=== PATIENT | male | born 1955 | race Caucasian/White ===

== ENCOUNTER 2018-03-20 17:23 | Inpatient (IN) | payer OTHER ==
[~2018-03-20] VITALS: Ht 185.4 cm; Wt 82.8 kg
[2018-03-20 18:04] LABS: BASOPHILS # (AUTO) 0.03 x10^3/uL (0-0.1); BASOPHILS % (AUTO) 1 % (0-1); EOSINOPHILS # (AUTO) 0.15 x10^3/uL (0-0.4); EOSINOPHILS % (AUTO) 3 % (1-7); LYMPHOCYTES # (AUTO) 1.89 x10^3/uL (1-3.4); LYMPHOCYTES % (AUTO) 33 % (22-44); MD NO; MEAN CORPUSCULAR HEMOGLOBIN 28.1 pg (27.5-34.5); MEAN CORPUSCULAR HGB CONC 32.9 g/dL (33.2-36.2); MEAN CORPUSCULAR VOLUME 85.5 fL (81-97); MEAN PLATELET VOLUME 8.7 fL (7.4-10.4); MONOCYTES # (AUTO) 0.73 x10^3/uL (0.2-0.8); MONOCYTES % (AUTO) 13 % (2-9); NEUTROPHILS # (AUTO) 2.95 x10^3/uL (1.8-6.8); NEUTROPHILS % (AUTO) 51 % (42-75); PLATELET COUNT 230 x10^3/uL (130-400); RED BLOOD COUNT 4.89 x10^6/uL (4.38-5.82); RED CELL DISTRIBUTION WIDTH 14.1 % (9.4-14.8)
[2018-03-20 18:15] LABS: ALANINE AMINOTRANSFERASE 26 U/L (12-78); ALBUMIN 3.3 g/dL (3.4-5.0); ANION GAP 6 mmol/L (5-15); CALCIUM 8.9 mg/dL (8.5-10.1); CHLORIDE 108 mmol/L (98-107); CREATININE 1.14 mg/dL (0.7-1.3)
[2018-03-20 18:18] LABS: ALKALINE PHOSPHATASE 49 U/L (45-117); BILIRUBIN,TOTAL 0.4 mg/dL (0.2-1.0); TOTAL PROTEIN 6.9 g/dL (6.4-8.2); TROPONIN I < 0.015 ng/mL (0.000-0.045)
[2018-03-20 19:22] LABS: MICROSCOPIC NOT IND
[2018-03-20 19:28] LABS: CULTURE INDICATED? NO
[2018-03-20] MEDS ORDERED: ONDANSETRON ODT 4 MG ONE (19:40)
[2018-03-20] MEDS ORDERED: MORPHINE SULFATE 4 MG/ML, 1ML ONE (19:41)
[2018-03-20] MEDS ORDERED: OMNIPAQUE 350 MG/ML, 100ML BOTTLE ONE (20:00)
[2018-03-20] MEDS ORDERED: HYDROmorphone 2 MG/ML, 1ML IVPush PRN (20:30)
[2018-03-20] MEDS ORDERED: MORPHINE SULFATE 4 MG/ML, 1ML IVPush PRN (20:30)
[2018-03-20] MEDS ORDERED: ONDANSETRON ODT 4 MG PO ONE (20:30)
[2018-03-20] MEDS ORDERED: SODIUM CHLORIDE 0.9% 1,000 ML IV ONE (20:30)
[2018-03-20 21:28] LABS: HEMOGLOBIN A1C 5.4 % (4.2-6.3)
[2018-03-20] MEDS ORDERED: ONDANSETRON ODT 4 MG PO PRN (21:30)
[2018-03-20] MEDS ORDERED: LABETALOL 5MG/ML, 20ML IVPush PRN (21:30)
[2018-03-20] MEDS ORDERED: ONDANSETRON 2MG/ML, 2ML IVPush PRN (21:30)
[2018-03-20] MEDS ORDERED: ACETAMINOPHEN 325 MG TABLET PO PRN (21:30)
[2018-03-20] MEDS ORDERED: PROMETHAZINE 25 MG/ML, 1ML IM PRN (21:30)
[2018-03-20] MEDS ORDERED: morphine SULFATE 10 MG/ML, 1ML IVPush PRN (21:30)
[2018-03-20] MEDS ORDERED: hydrALAzine 20 MG/ML, 1ML IVPush PRN (21:30)
[2018-03-20 21:31] LABS: FREE T4 (FREE THYROXINE) 0.96 ng/dL (0.76-1.46); THYROID STIMULATING HORMONE 3.23 mIU/L (0.358-3.740)
[2018-03-20 22:27] VITALS: BP 122/80
[2018-03-20] MEDS: OXYcodone IR 5MG TABLET PO PRN (23:24)
[2018-03-20] MEDS: TEMAZEPAM 15 MG CAPSULE PO PRN (23:24)
[2018-03-20] MEDS: D5%-0.9% NACL+KCL 20MEQ 1,000 ML IV SCH (23:25)
[2018-03-21 02:31] VITALS: BP 115/75
[2018-03-21 06:11] LABS: CHLORIDE 113 mmol/L (98-107)
[2018-03-21 06:15] LABS: BASOPHILS # (AUTO) 0.03 x10^3/uL (0-0.1); BASOPHILS % (AUTO) 1 % (0-1); EOSINOPHILS # (AUTO) 0.18 x10^3/uL (0-0.4); EOSINOPHILS % (AUTO) 4 % (1-7); LYMPHOCYTES # (AUTO) 2.02 x10^3/uL (1-3.4); LYMPHOCYTES % (AUTO) 45 % (22-44); MD NO; MEAN CORPUSCULAR HEMOGLOBIN 28.1 pg (27.5-34.5); MEAN CORPUSCULAR HGB CONC 32.9 g/dL (33.2-36.2); MEAN CORPUSCULAR VOLUME 85.4 fL (81-97); MEAN PLATELET VOLUME 8.9 fL (7.4-10.4); MONOCYTES # (AUTO) 0.59 x10^3/uL (0.2-0.8); MONOCYTES % (AUTO) 13 % (2-9); NEUTROPHILS % (AUTO) 38 % (42-75); PLATELET COUNT 191 x10^3/uL (130-400); RED CELL DISTRIBUTION WIDTH 14.1 % (9.4-14.8)
[2018-03-21 06:17] LABS: ALANINE AMINOTRANSFERASE 23 U/L (12-78); ALBUMIN 2.6 g/dL (3.4-5.0); ALKALINE PHOSPHATASE 39 U/L (45-117); ANION GAP 5 mmol/L (5-15); BILIRUBIN,TOTAL 0.4 mg/dL (0.2-1.0); CALCIUM 7.7 mg/dL (8.5-10.1); CHOL/HDL RATIO 4.6; CHOLESTEROL, TOTAL 119 mg/dL (140-239); CREATININE 1.05 mg/dL (0.7-1.3); HDL CHOL % 22 % (26-37); HDL CHOLESTEROL (DIRECT) 26 mg/dL (40-60); LDL CHOLESTEROL,CALCULATED 49 mg/dL (54-169); LDL/HDL RATIO 1.9 (0.5-3.0); TOTAL PROTEIN 5.5 g/dL (6.4-8.2); TRIGLYCERIDES 218 mg/dL (50-200); VLDL CHOLESTEROL 44 mg/dL (0-25)
[2018-03-21] MEDS: D5%-0.9% NACL+KCL 20MEQ 1,000 ML IV SCH ×2 (06:29→16:15)
[2018-03-21] MEDS: OXYcodone IR 5MG TABLET PO PRN ×5 (06:38→21:54)
[2018-03-21 08:00] VITALS: BP 108/69
[2018-03-21 13:14] VITALS: BP 111/68
[2018-03-21 19:44] VITALS: BP 123/71
[2018-03-21] MEDS: TEMAZEPAM 15 MG CAPSULE PO PRN (21:51)
[2018-03-22 01:39] VITALS: BP 119/76
[2018-03-22 07:42] VITALS: BP 144/87
[2018-03-22 09:26] VITALS: BP 115/61
[2018-03-22 14:35] VITALS: BP 138/83
== END 2018-03-22 14:43 | disposition home or self-care (01) | DRG 389 ==
LOC: ED 21:53 → 4NOR 21:55 → ED 22:25
PROVIDERS: ADMIT Internal Medicine; ATTEND Internal Medicine
DX: K56.600 Partial intestinal obstruction, unspecified as to cause (principal); E44.0 Moderate protein-calorie malnutrition; F12.90 Cannabis use, unspecified, uncomplicated; F17.210 Nicotine dependence, cigarettes, uncomplicated; M47.816 Spondylosis without myelopathy or radiculopathy, lumbar region; M51.37 Other intervertebral disc degeneration, lumbosacral region; Z68.24 Body mass index [BMI] 24.0-24.9, adult
CPT/HCPCS: 36415; 71045; 74177; 80053; 80061; 81003; 83036; 83690; 83735; 84439; 84443; 84484; 85025; 93005; 96361; 96374; Q0162; Q9967; J3480; J7030